=== PATIENT | female | born 1970 | race Two or more races ===

== ENCOUNTER 2020-07-29 10:10 | Emergency (ER) | payer MEDICAID ==
[~2020-07-29] VITALS: Ht 170.2 cm; Wt 58.3 kg
[~2020-07-29 10:10] MED LIST: ALPR0.5T7 PO; ATOR40TA78 PO; CARV12.543 PO; INSU100C5 SQ-INSULIN; INSU100I13 SQ; IPRA4AER INH; TRAM50TA2 PO
[2020-07-29 10:15] VITALS: BP 117/70
[2020-07-29] MEDS ORDERED: DIPH,PERTUSS(ACELL),TET VAC/PF 0.5 ML IM-VACC ONE ×2 (11:00→11:07)
[2020-07-29] MEDS ORDERED: LIDOCAINE-MPF 1%, 5ML INFIL ONE (11:00)
[2020-07-29] MEDS ORDERED: LIDOCAINE-MPF 1%, 5ML ONE (11:06)
[2020-07-29] MEDS ORDERED: ACETAMINOPHEN 500 MG TABLET PO ONE (12:30)
== END 2020-07-29 12:53 | disposition home or self-care (01) ==
LOC: ED 12:10
DX: S61.213A Laceration without foreign body of left middle finger without damage to nail, initial encounter (principal); S60.872A Other superficial bite of left wrist, initial encounter; S60.473A Other superficial bite of left middle finger, initial encounter; S60.572A Other superficial bite of hand of left hand, initial encounter; I10 Essential (primary) hypertension; I25.2 Old myocardial infarction; E11.9 Type 2 diabetes mellitus without complications; E78.00 Pure hypercholesterolemia, unspecified; W54.0XXA Bitten by dog, initial encounter; Y93.89 Activity, other specified; Y92.89 Other specified places as the place of occurrence of the external cause; Y99.8 Other external cause status
CPT/HCPCS: 12041; 90471; 90715